=== PATIENT | male | born 1960 | race Caucasian/White ===

== ENCOUNTER 2021-09-11 07:51 | Outpatient (CLI) | payer BC, SELFPAY | END 2021-09-11 07:52 | disposition home or self-care (01) | LOC: AMB 09-28 14:57 | PROVIDERS: PCP Family Medicine; Visit Provider Internal Medicine | DX: R42 Dizziness and giddiness (principal) ==

== ENCOUNTER 2021-09-11 08:10 | Emergency (ER) | payer BC, SELFPAY ==
[2021-09-11] VITALS (11 sets, daily range): BP systolic 143–155; BP diastolic 87–117; PULSE 80–98; RESP 15–22; O2SAT 94–97; BMI 35.4
--- NOTE | 2021-09-11 09:08 | ED.DIZZY ---
HPI - Dizziness General Time Seen by Provider: 09:09 Date Seen: 09/11/21 Chief Complaint: Dizziness/Vertigo Stated Complaint: High blood pressure, shaky Time Seen by Provider: 09/11/21 08:54 Source: patient and family Mode of arrival: ambulatory Limitations: no limitations History of Present Illness HPI Narrative: Patient is 61-year-old gentleman who was at work at [employer] and approximately 730 this morning became somewhat dizzy. The dizziness occurred when he was standing up looking around he describes it almost like that he was feeling weak but then also the room seemingly was moving at the same time. He sat down, said he had in quite feel right, took his blood pressure which was 200 systolic. He talk to his significant other who happened to work with him, and she brought him over to the emergency room to be seen. These symptoms have all resolved and resolved after approximately 10-15 minutes. He did not have any chest pain any shortness of breath he did not have a headache, there is no blackening of his vision and no numbness or tingling or weakness. He has never before had symptoms somewhat like this and says he thinks it might be related to stopping his blood pressure medication 3 weeks ago which she stopped because of swelling of his legs. He is unsure what medication he was on he seen at the [facility], starts with an Dora MCCANN elicited complaint: dizziness Timing: sudden onset Severity: mild Context: change in medication History of similar symptoms: No Associated symptoms: denies other symptoms Stroke scale total: 0 Review of Systems Status of ROS: Reports: 10 or more systems reviewed and unremarkable except as noted in History and below PFSH PFS Social History Smoking Status: Former smoker What tobacco products do you use: cigarettes Smoking quit date/years: >15 years ago Do you use any of these nicotine containing products: None Second hand tobacco smoke exposure: No How often do you have a drink containing alcohol: 4 or more times a week How many standard drinks containing alcohol do you have on a typical day: 1 or 2 How often do you have six or more drinks on one occasion: Never AUDIT-C Alcohol total score: 4 Non-prescribed substance use: denies use service: No Exam Narrative: Exam Narrative: Patient is sitting in the chair, speaking to me normally, good speech pattern, vital signs are reviewed. Pupils are equal round reactive to light his fundi are normally tracks normally extraocular muscles are normal TMs are normal bilaterally, carotid source equal bilaterally with full upstrokes cranial nerves 3-12 are normal, there is no lymphadenopathy anterior posterior chains his cervical spine has full range of motion, chest is good air entry bilaterally heart sounds no clicks murmurs or gallops, abdomen is soft there is no guarding no past splenomegaly large obese abdomen is noted. With the easily reducible umbilical hernia. Bowel sounds are normal, no organomegaly, back shows no tenderness to palpation over the CVA area, or along the thoracic lumbar spine. Lower extremities show no edema bilaterally he is able to walk normally tandem walking is normal fine were movements fingers nose testing is normal is normal sykes upper lower extremities, normal sensation, Const: Vital Signs, click to edit/add: Vital Signs - 24 hr 09/11/21 08:22 09/11/21 08:30 09/11/21 09:00 Pulse Rate [Pulse Oximeter] 92 88 92 Respiratory Rate 20 18 18 Blood Pressure [Ri ght Upper Arm] 151/106 H 146/104 H 154/117 H Pulse Oximetry 96 96 94 09/11/21 09:30 09/11/21 09:55 09/11/21 10:00 Pulse Rate [Pulse Oximeter] 87 82 96 Respiratory Rate 18 Blood Pressure [Ri ght Upper Arm] 146/95 H 149/87 H 153/101 H Pulse Oximetry 97 09/11/21 10:05 Pulse Rate [Pulse Oximeter] 98 Respiratory Rate Blood Pressure [Ri ght Upper Arm] 155/107 H Pulse Oximetry Documenting provider has reviewed patient's vital signs: yes Common normals: no apparent distress Course Vital Signs Vital signs: Initial Vital Signs Temperature Source Temporal Artery Scan 09/11/21 08:22 Pulse Rate 92 09/11/21 08:22 Pulse Rhythm 09/11/21 08:22 Respiratory Rate 20 09/11/21 08:22 Blood Pressure 151/106 H 09/11/21 08:22 Blood Pressure Mean 121 09/11/21 08:22 Blood Pressure Position Supine 09/11/21 08:22 Pulse Oximetry 96 09/11/21 08:22 Oxygen Delivery Method 09/11/21 08:22 Vital Signs Pulse Rate 92 09/11/21 08:22 Respiratory Rate 20 09/11/21 08:22 Blood Pressure 151/106 H 09/11/21 08:22 Pulse Oximetry 96 09/11/21 08:22 Pulse Rate 98 09/11/21 10:05 Respiratory Rate 18 09/11/21 09:30 Blood Pressure 155/107 H 09/11/21 10:05 Pulse Oximetry 97 09/11/21 09:30 MDM - Dizziness MDM Narrative Medical decision making narrative: Life-threatening differential diagnosis considered include stroke, coronary artery disease, pneumonia, and heart failure. Other differential diagnosis include but are not limited to electrolyte imbalances, anemia, medication reactions, and urinary tract infection I reviewed his laboratory work which showed no acute findings. He remained pain free and dizziness free while he was here. Point of care troponins were also negative. I do think he has elevated blood pressure needs follow-up for this, but I do not think we need to do anything acutely. He is in agreement. I think it would be reasonable to discharge him and have him follow-up with his primary care physician. Medical Records Attestation: I reviewed the patient's medical records. Lab Data Attestation: I reviewed the patient's lab results. Labs: Lab Results 09/11/21 09/11/21 09/11/21 Range/Units 09:30 09:30 09:30 WBC 7.13 (4.50-11.00) K/uL RBC 5.02 (4.30-5.90) m/uL Hgb 15.2 (13.5-17.5) gm/dL Hct 46.0 (37.0-53.0) % MCV 92 (80-100) fL MCH 30 (26-34) pg MCHC 33 (32-36) gm/dL RDW Coeff of Ana Laura 13.1 (11.5-15.5) % Plt Count 231 (140-440) K/uL Neut % (Auto) 60.0 (42.0-72.0) % Lymph % (Auto) 26.9 (20-44) % Gregg % (Auto) 10.2 (0.0-11.0) % Eos % (Auto) 2.2 (0.0-7.0) % Baso % (Auto) 0.6 (0.0-3.0) % Neut # (Auto) 4.27 (1.7-7.0) K/uL Lymph # (Auto) 1.92 (0.90-2.90) K/uL Gregg # (Auto) 0.70 (0.00-0.90) K/UL Eos # (Auto) 0.16 (0.00-0.50) K/uL Baso # (Auto) 0.04 (0.00-0.30) K/uL Abs Immat Gran (auto) 0.01 (0.00-0.30) K/uL Sodium 136 (135-149) mmol/L Potassium 4.4 (3.6-5.1) mmol/L Chloride 106 (96-114) mmol/L Carbon Dioxide 23 (20-32) mmol/L BUN 12 (7-30) mg/dL Creatinine 1.0 (0.5-1.5) mg/dL Estimated Creat Clear 70.69 Estimated GFR 85 ml/min Glucose 99 (60-115) mg/dL Calcium 9.5 (8.4-10.6) mg/dL POC Troponin I 0.00 L (0.01-0.04) ng/ml 09/11/21 Range/Units 11:20 WBC (4.50-11.00) K/uL RBC (4.30-5.90) m/uL Hgb (13.5-17.5) gm/dL Hct (37.0-53.0) % MCV (80-100) fL MCH (26-34) pg MCHC (32-36) gm/dL RDW Coeff of Ana Laura (11.5-15.5) % Plt Count (140-440) K/uL Neut % (Auto) (42.0-72.0) % Lymph % (Auto) (20-44) % Gregg % (Auto) (0.0-11.0) % Eos % (Auto) (0.0-7.0) % Baso % (Auto) (0.0-3.0) % Neut # (Auto) (1.7-7.0) K/uL Lymph # (Auto) (0.90-2.90) K/uL Gregg # (Auto) (0.00-0.90) K/UL Eos # (Auto) (0.00-0.50) K/uL Baso # (Auto) (0.00-0.30) K/uL Abs Immat Gran (auto) (0.00-0.30) K/uL Sodium (135-149) mmol/L Potassium (3.6-5.1) mmol/L Chloride (96-114) mmol/L Carbon Dioxide (20-32) mmol/L BUN (7-30) mg/dL Creatinine (0.5-1.5) mg/dL Estimated Creat Clear Estimated GFR ml/min Glucose (60-115) mg/dL Calcium (8.4-10.6) mg/dL POC Troponin I 0.01 (0.01-0.04) ng/ml ECG Data Attestation: I personally reviewed and interpreted this ECG as follows: ECG interpretation date: 09/11/21 ECG interpretation time: 11:29 Prior ECG tracings: not available for review Interpretation: EKG shows normal sinus rhythm, there is no acute ST wave change reticular rate is 90. Otherwise normal EKG Discharge Plan Discharge Clinical Impression: Dizziness, Elevated systolic blood pressure reading with diagnosis of hypertension Patient Disposition: Home w/ Parent or Adult Condition: Stable Instructions: Hypertension (ED), Dizziness (ED) Additional Instructions: Rest, home, follow-up with primary care consideration of additional medications. No evidence of acute abnormality on testing today. Follow Up/Referrals: Dionne Benitez DO [Primary Care Provider] - Stand Alone Forms: [employer] Info Instructions
[2021-09-11 09:46] LABS: Basophils Absolute Auto 0.04 K/uL (0.00-0.30); Basophils Percent Auto 0.6 % (0.0-3.0); Eosinophils Absolute Auto 0.16 K/uL (0.00-0.50); Eosinophils Percent Auto 2.2 % (0.0-7.0); Hemoglobin* 15.2 gm/dL (13.5-17.5); Immature Granulocytes Abs Auto 0.01 K/uL (0.00-0.30); Lymphocytes Absolute Auto 1.92 K/uL (0.90-2.90); Lymphocytes Percent Auto 26.9 % (20-44); Mean Corpuscular HGB Conc 33 gm/dL (32-36); Mean Corpuscular Hemoglobin 30 pg (26-34); Mean Corpuscular Volume 92 fL (80-100); Monocytes Percent Auto 10.2 % (0.0-11.0); Neutrophils Absolute Auto 4.27 K/uL (1.7-7.0); Platelet Count* 231 K/uL (140-440); RDW Coefficient of Variation % 13.1 % (11.5-15.5); Red Blood Count 5.02 m/uL (4.30-5.90); White Blood Count* 7.13 K/uL (4.50-11.00)
[2021-09-11 10:23] LABS: Chloride* 106 mmol/L (96-114); Potassium* 4.4 mmol/L (3.6-5.1); Sodium* 136 mmol/L (135-149)
[2021-09-11 10:25] LABS: Est. Creatinine Clearance* 70.69; Estimated Glomerular Filt Rate 85 ml/min
[2021-09-11 10:26] LABS: Blood Urea Nitrogen* 12 mg/dL (7-30); Calcium* 9.5 mg/dL (8.4-10.6); Carbon Dioxide* 23 mmol/L (20-32); Glucose* 99 mg/dL (60-115)
[2021-09-11 11:06] LABS: Slide Review Reflex No
[2021-09-11 11:44] LABS: Troponin, Point-of-Care* 0.01 ng/ml (0.01-0.04)
== END 2021-09-11 12:25 | disposition home or self-care (01) ==
PROVIDERS: Emergency Provider Family Medicine; PCP Family Medicine
DX: R42 Dizziness and giddiness (principal); I10 Essential (primary) hypertension
CPT/HCPCS: 36415; 80048; 84484; 85025; 93005; 99284

== ENCOUNTER 2021-12-25 10:45 | Outpatient (RCR) | payer BC, SELFPAY | END 2022-02-06 12:37 | disposition home or self-care (01) | PROVIDERS: PCP Family Medicine; Visit Provider Family Medicine | DX: S83.241D Other tear of medial meniscus, current injury, right knee, subsequent encounter (principal); Z51.89 Encounter for other specified aftercare | CPT/HCPCS: 97110; 97116; 97140; 97162 ==

== ENCOUNTER 2022-12-09 05:40 | Outpatient (CLI) | payer OTHER, BC, SELFPAY | END 2022-12-09 05:41 | disposition home or self-care (01) | PROVIDERS: PCP Family Medicine; Visit Provider Family Medicine | DX: S89.90XA Unspecified injury of unspecified lower leg, initial encounter (principal); V49.40XA Driver injured in collision with unspecified motor vehicles in traffic accident, initial encounter; Y92.410 Unspecified street and highway as the place of occurrence of the external cause | CPT/HCPCS: A0998 ==